=== PATIENT | male | born 1945 | race Caucasian/White ===

== ENCOUNTER → 2018-01-03 | Outpatient (CLI) | payer MEDICARE ==
[~2018-01-03] MED LIST: ATOR10 PO; Aspir 8181 MG PO; CHOL10002 PO; ENOX40I SC; Ferrous Sulfat325 M2 PO; IRON PO; LISI5 PO; Norco 7.5-3251 EACH PO; Omeprazole20 M1 PO; PROM12.5S PO; PROM25 PO; Synthroid/Le0.075 MG PO; TAMS.4ER PO; VITAMIN D5000 UNIT PO
== END ==
LOC: LAB SHORT → LAB
DX: D48.5 Neoplasm of uncertain behavior of skin (principal)
CPT/HCPCS: 88305

== ENCOUNTER → 2018-02-08 | Outpatient (CLI) | payer MEDICARE | LOC: PLD 13:28 → LAB SHORT 13:28 | DX: D48.5 Neoplasm of uncertain behavior of skin (principal) | CPT/HCPCS: 88305 ==

== ENCOUNTER → 2018-06-15 | Outpatient (CLI) | payer MEDICARE ==
[2018-06-15 09:13] LABS: BASOPHILS ABSOLUTE AUTO 0.01 K/mm3 (0.00-0.23); BASOPHILS PERCENT AUTO 0 % (0-2); EOSINOPHILS ABSOLUTE AUTO 0.21 K/mm3 (0.00-0.68); EOSINOPHILS PERCENT AUTO 3 % (0-6); Hematocrit 40.2 % (37.0-53.0); Hemoglobin 13.5 g/dL (13.5-17.5); IMMATURE GRAN ABSOLUTE AUTO 0.02 K/mm3 (0.00-0.10); IMMATURE GRAN PERCENT AUTO 0 % (0-1); LYMPHOCYTES ABSOLUTE AUTO 1.48 K/mm3 (0.84-5.20); LYMPHOCYTES PERCENT AUTO 21 % (21-46); MONOCYTES ABSOLUTE AUTO 0.76 K/mm3 (0.16-1.47); MONOCYTES PERCENT AUTO 11 % (4-13); Mean Corpuscular HGB Conc 33.6 g/dL (31.5-36.5); Mean Corpuscular Volume 101 fL (80-100); Mean Platelet Volume 9.9 fL (9.1-12.4); NEUTROPHILS ABSOLUTE AUTO 4.67 K/mm3 (1.96-9.15); NEUTROPHILS PERCENT AUTO 65 % (41-73); Platelet Count 295 K/mm3 (150-400); RDW Coefficient Variation 14.6 % (11.7-14.2); RDW Standard Deviation 54.2 fL (35.1-46.3); Red Blood Cell Count 3.97 M/mm3 (4.30-5.90); White Blood Cell Count 7.15 K/mm3 (4.00-11.30)
[2018-06-15 09:29] LABS: Anion Gap 7 mmol/L (6-16); Blood Urea Nitrogen 20 mg/dL (8-24); Bun/Creatinine Ratio 16.1 (12.0-20.0); CO2, Blood 27 mmol/L (21-32); Chloride, Blood 106 mmol/L (98-108); Creatinine, Blood 1.24 mg/dL (0.60-1.20); Glomerular Filtration Rate 57 (60-); Glucose, Blood 75 mg/dL (70-99); Potassium, Blood 3.8 mmol/L (3.5-5.5); Sodium, Blood 140 mmol/L (136-145)
[2018-06-15 09:31] LABS: Troponin I <0.017 ng/mL (0.000-0.040)
== END | disposition home or self-care (01) ==
LOC: LAB EV 09:05 → LAB SHORT 09:05
PROVIDERS: Physician Assistant Surgical
DX: Z53.9 Procedure and treatment not carried out, unspecified reason (principal)
CPT/HCPCS: 80048; 83880; 84484; 85025; 85379

== ENCOUNTER → 2019-03-29 | Outpatient (CLI) | payer MEDICARE | END | disposition home or self-care (01) | LOC: LAB SHORT 10:05 → LAB EV 10:05 | DX: J40 Bronchitis, not specified as acute or chronic (principal) | CPT/HCPCS: 87070; 87205 ==

== ENCOUNTER → 2020-01-22 | Outpatient (CLI) | payer MEDICARE | LOC: LAB SHORT 14:08 → PLD 14:08 | DX: D09.8 Carcinoma in situ of other specified sites (principal) | CPT/HCPCS: 88305 ==

== ENCOUNTER → 2020-03-06 | Outpatient (CLI) | payer MEDICARE | END | disposition home or self-care (01) | LOC: PLD 08:38 → LAB SHORT 08:38 | DX: D48.5 Neoplasm of uncertain behavior of skin (principal) | CPT/HCPCS: 88305 ==

== ENCOUNTER → 2020-11-12 | Outpatient (CLI) | payer MEDICARE | END | disposition home or self-care (01) | LOC: PLD 16:32 → LAB SHORT 16:32 | DX: C44.519 Basal cell carcinoma of skin of other part of trunk (principal) | CPT/HCPCS: 88305 ==

== ENCOUNTER → 2021-02-26 | Outpatient (CLI) | payer MEDICARE | LOC: PLD 13:27 → LAB SHORT 13:27 | DX: D48.5 Neoplasm of uncertain behavior of skin (principal); C44.529 Squamous cell carcinoma of skin of other part of trunk | CPT/HCPCS: 88305 ==

== ENCOUNTER → 2021-07-07 | Outpatient (CLI) | payer MEDICARE | END | disposition home or self-care (01) | LOC: LAB SHORT 11:15 → LAB 11:15 | DX: D04.62 Carcinoma in situ of skin of left upper limb, including shoulder (principal); C43.39 Malignant melanoma of other parts of face; L57.0 Actinic keratosis | CPT/HCPCS: 88305 ==

== ENCOUNTER → 2021-10-07 | Outpatient (CLI) | payer MEDICARE | END | disposition home or self-care (01) | LOC: LAB SHORT 13:56 → LAB 13:56 | DX: D48.5 Neoplasm of uncertain behavior of skin (principal) | CPT/HCPCS: 88305 ==

== ENCOUNTER 2022-03-18 11:02 | Day surgery (SDC) | payer MEDICARE ==
[~2022-03-18] VITALS: Ht 182.9 cm; Wt 98.6 kg
[~2022-03-18 11:02] MED LIST changes: +ALBU90OI INH; +Alphagan P5 ML LEFTEYE; +BREO ELLIPTA 11 EAC1 INH; +FERSU300 PO; -Ferrous Sulfat325 M2 PO; +Flonase 0.05% N16 GM; +MUPIROCIN22 G1 TOP; +PREDNISOLO15 MG/5 ML LEFTEYE; +TIMO.5OPSO LEFTEYE; +VITAMIN D325 MC3 PO
--- NOTE | 2022-03-18 12:19 | NUR ---
Ambulatory in Day Surgery History, Chart, Medications and Allergies reviewed before start of procedure. Lungs clear T/O to Auscultation. Patient confirms NPO status and agrees with scheduled surgery. Pre-Op teaching done. Pt verbalizes understanding.
--- NOTE | 2022-03-18 12:49 | NUR ---
PHARMACY WAS CONSULTED REGARDING KETORALAC IN THE KNEE COCKTAIL SINCE THE PT HAS "STOMACH UPSET" DUE TO NSAIDS. PT DENIES HX OF GI BLEED OR ULCER SO PHARMACIST STATED IT WAS OKAY TO PROCEED WITH KNEE COCKTAIL ORDER.
--- NOTE | 2022-03-18 14:07 | NUR ---
03/18/22 1407 Ora Elias PATIENT RECEIVED VANCO 1GM IN PREOP AT 1227 PRIOR TO ARRIVING IN THE OR.
--- NOTE | 2022-03-18 18:51 | NUR ---
SHIFT SUMMARY PT A&OX4, VSS/RA, JARROD PO, AMB W/FWW & GB, UP TO CHAIR/BLE ELEVATED, AWAITING POST OP VOID, PAIN TREATED WITH DILAUDID 0.5 MG. WILL REPORT TO ONCOMING NOC RN.
[2022-03-19 05:04] LABS: BASOPHILS PERCENT AUTO 0 % (0-2); EOSINOPHILS PERCENT AUTO 0 % (0-6); Hematocrit 38.1 % (37.0-53.0); IMMATURE GRAN ABSOLUTE AUTO 0.03 K/mm3 (0.00-0.10); IMMATURE GRAN PERCENT AUTO 0 % (0-1); LYMPHOCYTES ABSOLUTE AUTO 1.14 K/mm3 (0.84-5.20); LYMPHOCYTES PERCENT AUTO 10 % (21-46); MONOCYTES ABSOLUTE AUTO 0.61 K/mm3 (0.16-1.47); MONOCYTES PERCENT AUTO 5 % (4-13); Mean Corpuscular HGB 34.6 pg (26.0-34.0); Mean Corpuscular HGB Conc 34.1 g/dL (31.5-36.5); Mean Corpuscular Volume 101 fL (80-100); Mean Platelet Volume 10.2 fL (9.1-12.4); NEUTROPHILS ABSOLUTE AUTO 9.71 K/mm3 (1.96-9.15); NEUTROPHILS PERCENT AUTO 85 % (41-73); Platelet Count 197 K/mm3 (150-400); RDW Standard Deviation 53.1 fL (35.1-46.3); Red Blood Cell Count 3.76 M/mm3 (4.30-5.90); White Blood Cell Count 11.49 K/mm3 (4.00-11.30)
[2022-03-19 05:31] LABS: Anion Gap 5 mmol/L (6-16); Blood Urea Nitrogen 24 mg/dL (8-24); Bun/Creatinine Ratio 25.7 (12.0-20.0); CO2, Blood 26 mmol/L (21-32); Calcium, Blood 8.5 mg/dL (8.5-10.1); Chloride, Blood 106 mmol/L (98-108); Creatinine, Blood 0.93 mg/dL (0.60-1.20); Glomerular Filtration Rate >60 (60-); Glucose, Blood 152 mg/dL (70-99); Magnesium, Blood 1.7 mg/dL (1.6-2.4); Potassium, Blood 4.3 mmol/L (3.5-5.5); Sodium, Blood 137 mmol/L (136-145)
--- NOTE | 2022-03-19 11:22 | NUR ---
SHIFT SUMMARY: AMBULATING WITH FWW&GB. JARROD PO INTAKE. VOIDING. PAIN CONTROLLED WITH ROUTINE APAP. UNABLE TO JARROD TRAMADOL D/T N/V, ZOFRAN IV X1 0800. DC INSTRUCTIONS PROVIDED TO PT AND SPOUSE. LEFT FLOOR WITH ALL PERSONAL POSSESSIONS TO HOME WITH , DC PACKET. INST PROVIDED; PT AND VOICED UNDERSTANDING. IV DC'D.
== END 2022-03-19 10:55 | disposition home or self-care (01) ==
LOC: ORSCMMR 11:02 → ORD 14:45 → ORSCMMR 14:45 → SURS 16:51 → ORSCMMR 16:51 → SURS 03-19 10:55
PROVIDERS: Orthopaedic Surgery
PROC: 0SRC0J9 Replacement of Right Knee Joint with Synthetic Substitute, Cemented, Open Approach (ICD-10-PCS; 2022-03-18)
PROC: 8E0YXBZ Computer Assisted Procedure of Lower Extremity (ICD-10-PCS; principal; 2022-03-18 14:15)
DX: M17.11 Unilateral primary osteoarthritis, right knee (principal); Z96.652 Presence of left artificial knee joint; E03.9 Hypothyroidism, unspecified; I25.2 Old myocardial infarction; I25.10 Atherosclerotic heart disease of native coronary artery without angina pectoris; I10 Essential (primary) hypertension; J44.9 Chronic obstructive pulmonary disease, unspecified; K21.9 Gastro-esophageal reflux disease without esophagitis; D50.9 Iron deficiency anemia, unspecified; Z79.899 Other long term (current) drug therapy
CPT/HCPCS: 36415; 73560-RT; 80048; 83735; 85025; 97110; 97161; A9270; C1713; C1776; J0171; J0690; J0735; J1100; J1170; J1885; J2250; J2270; J2370; J2405; J2704; J2795; J3010; J3370; J7050; J7060; J7120

== ENCOUNTER → 2022-03-20 | Outpatient (CLI) | payer MEDICARE | END | disposition home or self-care (01) | LOC: LAB SHORT 19:02 | DX: R33.9 Retention of urine, unspecified (principal) | CPT/HCPCS: 87086 ==

== ENCOUNTER → 2023-04-19 | Outpatient (CLI) | payer MEDICARE | END | disposition home or self-care (01) | LOC: LAB SHORT 08:17 → LAB 08:17 → PLD 08:17 | DX: C44.229 Squamous cell carcinoma of skin of left ear and external auricular canal (principal); C44.612 Basal cell carcinoma of skin of right upper limb, including shoulder | CPT/HCPCS: 88305 ==

== ENCOUNTER → 2023-07-26 | Outpatient (CLI) | payer MEDICARE | END | disposition home or self-care (01) | LOC: LAB 07:29 → LAB SHORT 07:29 → PLD 07:29 | DX: R23.8 Other skin changes (principal) | CPT/HCPCS: 88305 ==